=== PATIENT | female | born 1935 | race Caucasian/White ===

== ENCOUNTER 2019-05-06 11:07 | Outpatient (CLI) | payer MEDICARE, OTHER | END 2019-05-06 11:08 | disposition home or self-care (01) | LOC: DI 11:07 | PROVIDERS: ATTEND Family Medicine | DX: I35.0 Nonrheumatic aortic (valve) stenosis (principal); R01.1 Cardiac murmur, unspecified; I50.9 Heart failure, unspecified; R06.00 Dyspnea, unspecified; J90 Pleural effusion, not elsewhere classified | CPT/HCPCS: 93306 ==

== ENCOUNTER 2019-09-16 12:31 | Outpatient (CLI) | payer MEDICARE, OTHER | END 2019-09-16 12:32 | disposition home or self-care (01) | LOC: DI 12:31 | PROVIDERS: ATTEND Specialist | DX: I50.22 Chronic systolic (congestive) heart failure (principal); Z95.2 Presence of prosthetic heart valve | CPT/HCPCS: 93306 ==

== ENCOUNTER 2020-05-28 15:39 | Outpatient (CLI) | payer MEDICARE, OTHER | END 2020-05-28 15:40 | disposition home or self-care (01) | LOC: COV 15:39 | PROVIDERS: ATTEND Ophthalmology | DX: Z01.812 Encounter for preprocedural laboratory examination (principal); H25.811 Combined forms of age-related cataract, right eye; Z20.828 Contact with and (suspected) exposure to other viral communicable diseases ==

== ENCOUNTER 2020-06-03 07:46 | Day surgery (SDC) | payer MEDICARE, OTHER ==
[~2020-06-03 07:46] MED LIST: KETOROLAC 0.45% OPHTH DROPS ONE; PHENYLEPHRINE 2.5% OPHTH 2 ML DROPS ONE; PROPARACAINE 0.5% OPHTH DROPS 15 ML ONE
[2020-06-03] MEDS ORDERED: LACTATED RINGERS 500 ML IV ONE ×2 (08:07→09:25)
--- NOTE | 2020-06-03 08:31 | ANESTHESIA ---
Pre-Anesthesia VS, & Labs - Diagnosis right eye senile combined cataract - Procedure right eye cataract extraction with IOL implant Vital Signs: Temp Pulse Resp BP Pulse Ox 36.2 C L 61 16 150/81 H 100 06/03/20 08:08 06/03/20 08:08 06/03/20 08:08 06/03/20 08:08 06/03/20 08:08 Height: 5 ft 4 in Weight (kg): 53 kg Body Mass Index: 20.0 BMI Classification: Healthy weight - NPO >8 hours - Is Patient ?: No Home Medications and Allergies Home Medications: Ambulatory Orders Warfarin [Coumadin] 4 mg PO DAILY 06/02/20 Warfarin [Coumadin] 4 mg PO DAILY 06/02/20 Allergies/Adverse Reactions: Allergies Allergy/AdvReac Type Severity Reaction Status Date / Time Gadolinium-Containing AdvReac Intermediate Rash Verified 06/02/20 15:10 Contrast Medi VONNIE Inhibitors AdvReac Respiratory Verified 06/02/20 15:10 Anes History & Medical History - Anesthetic History Anesthesia Complications: reports: No previous complications - Medical History Cardiovascular: reports: Congestive heart failure (EF 40-45%), Murmur, Valve disorder (AVR replacement (TAVR)) Pulmonary: reports: Emphysema, Shortness of breath, Sleep apnea (does not use CPAP, stated it was not indicated by sleep physician.) Gastrointestinal: reports: None Urinary: reports: Incontinence, Frequency Neuro: reports: TIA Musculoskeletal: reports: Osteoarthritis, Fatigue Endocrine/Autoimmune: reports: None Blood Disorders: reports: None Skin: reports: None Smoking Status: Former smoker (Quit 23 years ago. 40 pack year history) Psychosocial: reports: No issues indicated History of Cancer?: No - Surgical History General: Colonoscopy Eyes Ears Nose Throat (EENT): Tonsil/Adenoidectomy Cardiothoracic: Valve replacement Exam General: Alert, Oriented x3, Cooperative, No acute distress Dental: Dentures full Upper, Dentures full Lower Mouth Openin Fingerbreadth Neck Mobility: Normal Mallampati classification: II Thyromental Distance: 4-6 cm Mental/Cognitive Status: Alert/Oriented X3, Normal for patient Plan Anesthesia Type: MAC Consent for Procedure(s) Verified and Reviewed: Yes Code Status: Attempt Resuscitation ASA classification: 3-Severe systemic disease Is this case an emergency?: No
[2020-06-03] MEDS ORDERED: MIDAZOLAM 2 MG/2 ML VIAL IVP ONE (09:00)
[2020-06-03] MEDS ORDERED: EPINEPHrine 1 MG/ML AMP IR ONE (09:13)
[2020-06-03] MEDS ORDERED: TIMOLOL 0.5% OPHTH DROPS OPTH ONE (09:13)
[2020-06-03] MEDS ORDERED: CHONDR SULF/HYALURONATE SYRINGE IO ONE (09:13)
[2020-06-03] MEDS ORDERED: BSS/LIDOCAINE/EPINEPHRINE 1 ML SYRINGE IO ONE (09:13)
[2020-06-03] MEDS ORDERED: BRIMONIDINE 0.2% OPHTH DROPS 5 ML OPTH ONE (09:13)
[2020-06-03] MEDS ORDERED: TRIAMCIN/MOXIFLOX OPHTHALMIC 0.6 ML VIAL IO ONE ×2 (09:13→13:57)
[2020-06-03] MEDS ORDERED: PROPARACAINE 0.5% OPHTH DROPS 15 ML EACHEYE ONE (09:14)
[2020-06-03] MEDS ORDERED: VANCOMYCIN OPHTHALMI 8MG/0.8ML 8 MG/0.8 ML SYRINGE IO ONE ×2 (09:14→13:57)
[2020-06-03 09:35] VITALS: BP 154/55
--- NOTE | 2020-06-03 11:37 | ANESTHESIA POST OP EVALUATION ---
Anesthesia Post Eval - Post Anesthesia Eval Vitals: Last Vital Signs Temp 36.1 C L 06/03/20 09:20 Pulse 61 06/03/20 09:34 Resp 17 06/03/20 09:34 BP 154/55 H 06/03/20 09:34 Pulse Ox 92 06/03/20 09:34 CV Function Including HR & BP: positive: Stable Pain Control: positive: Satisfactory Nausea & Vomiting: positive: Negative Mental Status: positive: Baseline Respiratory Status: Airway Patent Hydration Status: Satisfactory Anesthesia Complications: positive: None
--- NOTE | 2020-06-03 11:52 | OPERATIVE REPORT ---
DATE OF SERVICE: 06/03/2020 Physician: Karan Sterling MD PREOPERATIVE DIAGNOSIS: Visually significant cataract, right eye. This was her first cataract surge ry. POSTOPERATIVE DIAGNOSIS: Visually significant cataract, right eye. This was her first cataract surg roya. PROCEDURE: Phacoemulsification with posterior chamber intraocular lens implant, right eye. SURGEON: Karan Sterling MD ANESTHESIA: Monitored anesthesia care. COMPLICATIONS: None. OPERATIVE INDICATIONS: This is an 84-year-old woman with progressive vision loss in the right eye du e to 3-4+ nuclear sclerotic, 1+ cortical and vacuolar cataract. Best corrected visual acuity was 20/ 30, with glare to hand motion vision in the right eye. Indications for surgery are overall decrease in vision, difficulty seeing words on a computer screen, difficulty seeing words, closed caption or g gerhard scores on TV, difficulty seeing street signs, difficulty driving in low light or at night, diffic ulty driving at night because of headlights from other vehicles, and difficulty with glare or bright lights in any situation. She was consented at length concerning risks and benefits of cataract surge ry, after which she expressed a desire to proceed with surgery. OPERATIVE PROCEDURE: The patient was taken to OR #3 and placed under monitored anesthesia care. A s urgical timeout was conducted confirming correct patient, correct procedure, and correct surgical sit e. She was given topical anesthesia, and prepped and draped in the usual sterile fashion. The eye w as entered at the 12 and 9 o'clock positions. Intracameral Shugarcaine was injected into the anterio r chamber, followed by Viscoat. A continuous-tear curvilinear capsulorrhexis was performed. The nuc leus was hydrodissected and phacoemulsified. The cortex was evacuated using automated infusion and a spiration. Provisc was injected in the capsular bag, and a 18.5 diopter intraocular lens was inserte d into the bag. Infusion and aspiration was used to evacuate the viscoelastic material. The eye was inflated to physiologic pressure using balanced salt solution and found to be watertight. Approxima tely 0.25 mL of a mixture of triamcinolone and moxifloxacin was injected transsclerally into the vitr eous in the inferotemporal quadrant. An additional 0.55 mL of a mixture of triamcinolone, moxifloxac in, and vancomycin was injected subconjunctivally in the superior quadrant for infection and inflamma tion prophylaxis. Wound integrity was checked with Weck-Faye sponges. Patient was taken from the Ope rating Room in good condition and given postoperative instructions. TD: 06/03/2020 09:32
[2020-06-03] MEDS ORDERED: BSS/LIDOCAINE/EPINEPHRINE 1 ML SYRINGE ONE (13:57)
[2020-06-03] MEDS ORDERED: EPINEPHrine 1 MG/ML AMP ONE (13:57)
[2020-06-03] MEDS ORDERED: TIMOLOL 0.5% OPHTH DROPS ONE (13:57)
[2020-06-03] MEDS ORDERED: BRIMONIDINE 0.2% OPHTH DROPS 5 ML ONE (13:57)
== END 2020-06-03 07:47 | disposition home or self-care (01) ==
LOC: SDS 07:46
PROVIDERS: ATTEND Ophthalmology
DX: H25.811 Combined forms of age-related cataract, right eye (principal); G47.30 Sleep apnea, unspecified; I69.954 Hemiplegia and hemiparesis following unspecified cerebrovascular disease affecting left non-dominant side; Z79.01 Long term (current) use of anticoagulants; Z87.891 Personal history of nicotine dependence
CPT/HCPCS: 66984; A9270; J3490; J7120; V2632

== ENCOUNTER 2020-07-09 13:51 | Outpatient (CLI) | payer MEDICARE, OTHER | END 2020-07-09 13:52 | disposition home or self-care (01) | LOC: COV 13:51 | PROVIDERS: ATTEND Ophthalmology | DX: Z01.812 Encounter for preprocedural laboratory examination (principal); H25.812 Combined forms of age-related cataract, left eye; Z20.828 Contact with and (suspected) exposure to other viral communicable diseases ==

== ENCOUNTER 2020-07-15 07:01 | Day surgery (SDC) | payer MEDICARE, OTHER ==
[2020-07-15] MEDS ORDERED: LACTATED RINGERS 500 ML IV ONE ×2 (07:25→08:11)
--- NOTE | 2020-07-15 07:36 | ANESTHESIA ---
Pre-Anesthesia VS, & Labs - Diagnosis L senile combined cataract - Procedure L extraction cataract w IOL Vital Signs: Temp Pulse Resp BP Pulse Ox 36.1 C L 66 16 141/63 H 100 07/15/20 07:10 07/15/20 07:10 07/15/20 07:10 07/15/20 07:10 07/15/20 07:10 Height: 5 ft 3 in Weight (kg): 55.4 kg Body Mass Index: 21.6 BMI Classification: Healthy weight - NPO >8 hours - Is Patient ?: No - Lab Results Lab results reviewed: Yes Home Medications and Allergies Warfarin [Coumadin] 4 mg PO DAILY 06/02/20 Allergies/Adverse Reactions: Allergies Allergy/AdvReac Type Severity Reaction Status Date / Time Gadolinium-Containing AdvReac Intermediate Rash Verified 06/02/20 15:10 Contrast Medi VONNIE Inhibitors AdvReac Respiratory Verified 06/02/20 15:10 Anes History & Medical History - Anesthetic History Anesthesia Complications: reports: No previous complications Family history of Anesthesia Complications: Denies Family history of Malignant Hyperthermia: Denies - Medical History Cardiovascular: reports: Congestive heart failure, Hypertension, Murmur, Valve disorder Pulmonary: reports: Shortness of breath, Sleep apnea Gastrointestinal: reports: None Urinary: reports: None, Nocturia Neuro: reports: TIA Musculoskeletal: reports: Osteoarthritis Endocrine/Autoimmune: reports: None Blood Disorders: reports: None Skin: reports: None Smoking Status: Former smoker (Quit 23 years ago. 40 pack year history) - Surgical History General: Colonoscopy Eyes Ears Nose Throat (EENT): Cataracts, Tonsil/Adenoidectomy Exam General: Alert, Oriented x3, Cooperative Dental: Dentures full Upper, Dentures full Lower Mouth Openin Fingerbreadth Neck Mobility: Normal Mallampati classification: II Thyromental Distance: 4-6 cm Respiratory: Lungs clear, Normal breath sounds, No respiratory distress Cardiovascular: Regular rate Neurological: Normal speech Mental/Cognitive Status: Alert/Oriented X3, Normal for patient Cognitive Status: Within normal limits Plan Anesthesia Type: MAC Consent for Procedure(s) Verified and Reviewed: Yes Code Status: Attempt Resuscitation ASA classification: 3-Severe systemic disease Is this case an emergency?: No
[2020-07-15] MEDS ORDERED: MIDAZOLAM 2 MG/2 ML VIAL ONE (07:44)
[2020-07-15] MEDS ORDERED: fentaNYL 100 MCG/2 ML VIAL ONE (07:46)
[2020-07-15] MEDS ORDERED: PROPARACAINE 0.5% OPHTH DROPS 15 ML EACHEYE ONE (07:57)
[2020-07-15] MEDS ORDERED: EPINEPHrine 1 MG/ML AMP IR ONE (08:01)
[2020-07-15] MEDS ORDERED: BRIMONIDINE 0.2% OPHTH DROPS 5 ML OPTH ONE (08:01)
[2020-07-15] MEDS ORDERED: CHONDR SULF/HYALURONATE SYRINGE IO ONE (08:01)
[2020-07-15] MEDS ORDERED: TRIAMCIN/MOXIFLOX OPHTHALMIC 0.6 ML VIAL IO ONE (08:02)
[2020-07-15] MEDS ORDERED: TIMOLOL 0.5% OPHTH DROPS OPTH ONE (08:02)
[2020-07-15] MEDS ORDERED: BSS/LIDOCAINE/EPINEPHRINE 1 ML SYRINGE IO ONE (08:02)
[2020-07-15] MEDS ORDERED: VANCOMYCIN OPHTHALMI 8MG/0.8ML 8 MG/0.8 ML SYRINGE IO ONE (08:03)
[2020-07-15] MEDS ORDERED: KETOROLAC 15 MG/ML VIAL IVP PRN (08:18)
[2020-07-15 08:26] VITALS: BP 114/83
[2020-07-15] MEDS ORDERED: KETOROLAC 15 MG/ML VIAL ONE (08:30)
--- NOTE | 2020-07-15 08:49 | ANESTHESIA POST OP EVALUATION ---
Anesthesia Post Eval - Post Anesthesia Eval Vitals: Last Vital Signs Temp 36.6 C 07/15/20 08:10 Pulse 74 07/15/20 08:10 Resp 16 07/15/20 08:10 BP 114/83 H 07/15/20 08:10 Pulse Ox 99 07/15/20 08:10 CV Function Including HR & BP: positive: Stable Pain Control: positive: Satisfactory Nausea & Vomiting: positive: Negative Mental Status: positive: Baseline Respiratory Status: Airway Patent Hydration Status: Satisfactory Anesthesia Complications: positive: None
--- NOTE | 2020-07-15 09:13 | OPERATIVE REPORT ---
DATE OF SERVICE: 07/15/2020 Physician: Karan Sterling MD PREOPERATIVE DIAGNOSIS: Visually significant cataract, left eye. Cataract surgery was performed on the right eye on 06/03/2020. POSTOPERATIVE DIAGNOSIS: Visually significant cataract, left eye. Cataract surgery was performed on the right eye on 06/03/2020. PROCEDURE: Phacoemulsification with posterior chamber intraocular lens implant, left eye. SURGEON: Karan Sterling MD ANESTHESIA: Monitored anesthesia care. COMPLICATIONS: None. OPERATIVE INDICATIONS: This is an 84-year-old woman with progressive vision loss in the left eye due to 3-4+ nuclear sclerotic, 2+ cortical, and trace posterior subcapsular cataract. Best corrected vi sual acuity was 20/40, with glare to hand motion vision in the left eye. Indications for surgery are overall decrease in vision, difficulty seeing words on a computer screen, difficulty reading, diffic ulty seeing words, closed caption or game scores on TV, difficulty seeing street signs, difficulty dr iving in low light or at night, difficulty driving at night because of headlights from other vehicles , and difficulty with glare or bright lights in any situation. She was consented at length concernin g risks and benefits of cataract surgery, after which she expressed a desire to proceed with surgery. OPERATIVE PROCEDURE: The patient was taken to OR #3 and placed under monitored anesthesia care and s urgical timeout was conducted confirming correct patient, correct procedure, and correct surgical sit e. She was given topical anesthesia, and prepped and draped in the usual sterile fashion. The eye w as entered at the 6 and 3 o'clock positions. Intracameral Shugarcaine was injected into the anterior chamber, followed by Viscoat. A continuous-tear curvilinear capsulorrhexis was performed. Nucleus was hydrodissected and phacoemulsified. The cortex was evacuated using automated infusion and aspira tion. Provisc was injected in the capsular bag, and a 16.5 diopter intraocular lens inserted in the bag. Infusion and aspiration was used to evacuate the viscoelastic materials. The eye was inflated to physiologic pressure using balanced salt solution and found to be watertight. Approximately 0.25 mL of a mixture of triamcinolone and moxifloxacin was injected transsclerally into the vitreous in th e inferotemporal quadrant. An additional 0.55 mL of a mixture of triamcinolone, moxifloxacin, and va ncomycin was injected subconjunctivally in the superior quadrant for infection and inflammation proph ylaxis. Wound integrity was checked with Weck-Afye sponges. Patient was taken from the operating beckie m in good condition and given postoperative instructions. TD: 07/15/2020 08:25
== END 2020-07-15 07:02 | disposition home or self-care (01) ==
LOC: SDS 07:01
PROVIDERS: ATTEND Ophthalmology
DX: H25.812 Combined forms of age-related cataract, left eye (principal); I11.0 Hypertensive heart disease with heart failure; I50.9 Heart failure, unspecified; G47.30 Sleep apnea, unspecified; R35.1 Nocturia; Z86.73 Personal history of transient ischemic attack (TIA), and cerebral infarction without residual deficits; Z79.01 Long term (current) use of anticoagulants; Z87.891 Personal history of nicotine dependence; Z95.2 Presence of prosthetic heart valve
CPT/HCPCS: 66984; A9270; J3490; J7120; V2632

== ENCOUNTER 2021-09-14 00:52 | Outpatient (CLI) | payer MEDICARE, OTHER | END 2021-09-14 00:53 | disposition critical access hospital (66) | LOC: EMS 00:52 | DX: R06.00 Dyspnea, unspecified (principal); R53.1 Weakness; R50.9 Fever, unspecified | CPT/HCPCS: A0425; A0429 ==

== ENCOUNTER 2021-09-14 01:16 | Inpatient (IN) | payer MEDICARE, OTHER ==
[2021-09-14] MEDS ORDERED: ACETAMINOPHEN 325 MG TABLET PO STA (01:35)
[2021-09-14] MEDS ORDERED: AZITHROMYCIN INJ 500 MG in SODIUM CHLORIDE 0.9% 250 ML IV STA (01:50)
[2021-09-14] MEDS ORDERED: SODIUM CHLORIDE 0.9% 1,000 ML IV STA (01:50)
[2021-09-14] MEDS ORDERED: cefTRIAXone 2 GM in SODIUM CHLORIDE 0.9% MINIBAG 100 ML IV STA (01:50)
[2021-09-14 01:51] LABS: BASOPHILS % (AUTO) 0.4 %; EOSINOPHILS % (AUTO) 0.3 %; HCT - HEMATOCRIT 40.1 % (37.0-47.0); HGB - HEMOGLOBIN 13.1 g/dL (12.0-16.0); LYMPHOCYTES % (AUTO) 3.1 %; MEAN CORPUSCULAR HEMOGLOBIN 30.6 pg (27.0-31.0); MEAN CORPUSCULAR HGB CONC 32.7 g/dL (32.0-36.0); MEAN CORPUSCULAR VOLUME 93.7 fL (81.0-99.0); MEAN PLATELET VOLUME 11.6 fL (7.9-10.8); MONOCYTES % (AUTO) 5.6 %; NEUTROPHILS % (AUTO) 90.2 %; PLT - PLATELET COUNT 165 10^3/uL (130-450); RED BLOOD COUNT 4.28 10^6/uL (4.20-5.40); RED CELL DISTRIBUTION WIDTH 12.9 % (12.0-15.0); WHITE BLOOD COUNT 13.6 x10^3/uL (4.8-10.8)
[2021-09-14 01:54] LABS: ABNORMAL LYMPHS % (MANUAL) 0 %; BAND NEUTROPHILS % (MANUAL) 0 %
--- NOTE | 2021-09-14 02:00 | ED Physician Documentation ---
History of Present Illness - Stated complaint Stated Complaint: SOA/FEVER - Chief complaint Chief Complaint: Resp - History obtained from History obtained from: Patient, EMS - Additonal information Additional information: The patient is brought to the emergency department by EMS for chief complaint of cough and weakness. The patient states that she came down with a cough about 2 weeks ago and says "my brought it home to me." The patient's had been sick with what seemed to be upper respiratory symptoms, and the patient then got sick from him. She states that she feels as though her shortness of breath has been getting steadily worse. The patient does not have any respiratory issues that she knows of. She was a smoker for 40 years and quit when she was 61. She does not know if she is ever received a formal diagnosis of COPD. She does not use any oxygen at home. She has a history of atrial fibrillation and aortic valve stenosis, for which she had an aortic valve repla cement back in [id number]. Patient is not aware of running fevers. She states that she got a little weak today and fell. She is on Coumadin for her atrial fibrillation, but states that she Did not hit her head when she fell. No other injuries. Patient denies lower extremity edema. She states she has never had any diagnosis of congestive heart failure, other than when she was about to get her aortic valve replaced. No other complaints at this time. She states she is feeling a little better on oxygen. Review of Systems Ten Systems: 10 systems reviewed and negative Constitutional: reports: Fatigue Eyes: reports: Reviewed and negative Ears: reports: Reviewed and negative Nose: reports: Reviewed and negative Throat: reports: Reviewed and negative Cardiac: reports: Palpitations Respiratory: reports: Dyspnea, Cough GI: reports: Reviewed and negative : reports: Reviewed and negative Skin: reports: Reviewed and negative Musculoskeletal: reports: Reviewed and negative Neurologic: reports: Reviewed and negative Psychiatric: reports: Reviewed and negative Endocrine: reports: Reviewed and negative Immunocompromised: reports: Reviewed and negative PD PAST MEDICAL HISTORY - Past Medical History Past Medical History: Yes Cardiovascular: Congestive heart failure, Hypertension, Coronary artery disease, Atrial fibrillation, Valve disorder Respiratory: COPD Neuro: TIA - Past Surgical History Cardiovascular: Valve replacement - Present Medications Home Medications: Ambulatory Orders Medication Instructions Recorded Confirmed Warfarin [Coumadin] 4 mg PO DAILY 06/02/20 06/02/20 - Allergies Allergies/Adverse Reactions: Allergies Allergy/AdvReac Type Severity Reaction Status Date / Time Gadolinium-Containing AdvReac Intermediate Rash Verified 09/14/21 01:25 Contrast Medi VONNIE Inhibitors AdvReac Respiratory Verified 09/14/21 01:25 - Social History Does the pt smoke?: No Smoking Status: Former smoker Does the pt drink ETOH?: No Does the pt have substance abuse?: No - Immunizations Immunizations are current?: Yes PD ED PE NORMAL - Vitals Vital signs reviewed: Yes - General General: Alert and oriented X 3, No acute distress, Well developed/nourished - HEENT HEENT: Atraumatic, PERRL, EOMI, Moist mucous membranes - Neck Neck: Supple, no meningeal sign - Cardiac Cardiac: RRR, No murmur, Strong equal pulses - Respiratory Respiratory: Clear bilaterally, Other (Very mild respiratory distress with slightly labored respirations and mild tachypnea. Rales starting in upper lobe and worsening in the lower lung downing. Right side worse than left.) - Abdomen Abdomen: Soft, Non tender, Non distended - Derm Derm: Normal color, Warm and dry, No rash - Extremities Extremities: No deformity, No edema, No calf tenderness / cord - Neuro Neuro: Alert and oriented X 3 - Psych Psych: Normal mood, Normal affect Results - Vitals Vitals: Vital Signs - 24 hr 09/14/21 09/14/21 09/14/21 01:25 01:30 02:00 Temperature 37.7 C 37.7 C Heart Rate 118 H 118 H 92 Respiratory 28 H 28 H 23 Rate Blood Pressure 128/96 H 128/96 H 118/62 O2 Saturation 94 94 97 Oxygen O2 Source Nasal cannula Oxygen Flow Rate 4 - Labs Labs: Laboratory Tests 09/14/21 09/14/21 09/14/21 01:30 01:30 01:30 WBC 13.6 H RBC 4.28 Hgb 13.1 Hct 40.1 MCV 93.7 MCH 30.6 MCHC 32.7 RDW 12.9 Plt Count 165 MPV 11.6 H Neut # (Auto) Not Reportable Lymph # (Auto) Not Reportable Hawkins # (Auto) Not Reportable Eos # (Auto) Not Reportable Baso # (Auto) Not Reportable Absolute Nucleated RBC Not Reportable Total Counted 100 Band Neuts % (Manual) 0 Abnorm Lymph % (Manual) 0 Nucleated RBC % Not Reportable Neutrophils # (Manual) 12.1 H Lymphocytes # (Manual) 0.5 L Monocytes # (Manual) 1.0 Eosinophils # (Manual) 0.0 Basophils # (Manual) 0.0 Differential Comment MANUAL DIFFERENTIAL WBC Morphology NORMAL APPEARANCE Platelet Estimate NORMAL (130-450,000) Platelet Morphology NORMAL APPEARANCE RBC Morph Micro Appear NORMAL APPEARANCE PT INR Sodium 137 Potassium 3.6 Chloride 103 Carbon Dioxide 22 Anion Gap 12.0 BUN 22 H Creatinine 0.9 Estimated GFR (MDRD) 60 L Glucose 158 H Lactic Acid 1.4 Calcium 8.5 Total Bilirubin 0.8 AST 18 ALT 16 Alkaline Phosphatase 69 B-Natriuretic Peptide Total Protein 6.3 L Albumin 3.2 Globulin 3.1 Albumin/Globulin Ratio 1.0 09/14/21 09/14/21 01:30 01:30 WBC RBC Hgb Hct MCV MCH MCHC RDW Plt Count MPV Neut # (Auto) Lymph # (Auto) Hawkins # (Auto) Eos # (Auto) Baso # (Auto) Absolute Nucleated RBC Total Counted Band Neuts % (Manual) Abnorm Lymph % (Manual) Nucleated RBC % Neutrophils # (Manual) Lymphocytes # (Manual) Monocytes # (Manual) Eosinophils # (Manual) Basophils # (Manual) Differential Comment WBC Morphology Platelet Estimate Platelet Morphology RBC Morph Micro Appear PT 36.1 H INR 3.3 H Sodium Potassium Chloride Carbon Dioxide Anion Gap BUN Creatinine Estimated GFR (MDRD) Glucose Lactic Acid Calcium Total Bilirubin AST ALT Alkaline Phosphatase B-Natriuretic Peptide 330 H Total Protein Albumin Globulin Albumin/Globulin Ratio PD MEDICAL DECISION MAKING - ED course Complexity details: reviewed old records, reviewed results, re-evaluated patient, considered differential, d/w patient ED course: The patient was worked up with labs, and chest x-ray, and EKG. EKG showed A. fib with tachycardia in the 1 teens. The patient's white blood cell count was elevated at 13.9. Hemoglobin was normal. Chest x-ray noted bilateral infiltrates. Patient was started on Rocephin and Zithromax for this. A respiratory PCR is pending. The patient's BNP was found to be 330, but chest x- ray showed no cardiomegaly or appearance of CHF, and patient had no lower extremity edema. Her BUN was mildly elevated compared to creatinine, and I felt that she could probably benefit from some fluids, so an IV fluid bolus was started. I discussed the case with Dr. Gil, who agreed to admit the patient to her service.The patient has been informed and is agreeable. I have discussed her CODE STATUS wishes with her, and she states that she does not wish to have CPR, shock, or intubation, but would prefer to be DNR status with limited i nterventions. Departure - Departure Disposition: 66 [facility] DC/Xfer Clinical Impression: Hypoxia Pneumonia Qualifiers: Pneumonia type: due to unspecified organism Laterality: bilateral Lung location: lower lobe of lung Qualified Code(s): J18.9 - Pneumonia, unspecified organism Condition: Serious
[2021-09-14] MEDS ORDERED: cefTRIAXone 2 GM VIAL ONE (02:03)
[2021-09-14 02:04] LABS: ALBUMIN 3.2 g/dL (3.2-5.5); BILIRUBIN,TOTAL 0.8 mg/dL (0.2-1.0); CALCIUM 8.5 mg/dL (8.5-10.3); CREATININE 0.9 mg/dL (0.4-1.0); POTASSIUM 3.6 mmol/L (3.5-5.0); TOTAL PROTEIN 6.3 g/dL (6.7-8.2)
[2021-09-14 02:05] LABS: INR 3.3 (0.8-1.2); PT - PROTHROMBIN TIME 36.1 secs (9.9-12.6)
--- NOTE | 2021-09-14 02:08 | XRAY Report ---
PROCEDURE: Chest 1 View X-Ray INDICATIONS: chest pain TECHNIQUE: One view of the chest was acquired. COMPARISON: None. FINDINGS: Surgical changes and devices: None. Lungs and pleura: Infiltrates in right lower lobe and left midlung zone, consistent with pneumonia. N o pleural effusions or pneumothorax. Mediastinum: Mediastinal contours appear normal. Heart size is normal. There is a heart valve pros thesis. Tortuous aorta. Bones and chest wall: No suspicious bony lesions. Overlying soft tissues appear unremarkable. IMPRESSION: 1. Bilateral pneumonia. Reviewed by: Kody Li MD on 09/14/2021 2:07 AM [facility] Approved by: Kody Li MD on 09/14/2021 2:07 AM PST Station ID: [id number]
[2021-09-14 02:20] LABS: DIFFERENTIAL COMMENT MANUAL DIFFERENTIAL; LYMPHOCYTES # (MANUAL) 0.5 10^3/uL (1.5-3.5); LYMPHOCYTES % (MANUAL) 4 %; NEUTROPHILS # (MANUAL) 12.1 10^3/uL (1.5-6.6); PLATELET ESTIMATE, MANUAL NORMAL (130-450,000) (NORMAL); PLATELET MORPHOLOGY NORMAL APPEARANCE (NORMAL); RBC MORPHOLOGY (MULTIPLE) NORMAL APPEARANCE (NORMAL); WBC MORPHOLOGY (MULTIPLE) NORMAL APPEARANCE (NORMAL)
[2021-09-14 02:45] LABS: B. PARAPERTUSSIS- RESP PCR PAN NOT DETECTED; B. PERTUSSIS- RESP PCR PANEL NOT DETECTED; C. PNEUMONIAE- RESP PCR PANEL NOT DETECTED; CORONAVIRUS 229E-RESP PCR NOT DETECTED; CORONAVIRUS HKU1-RESP PCR NOT DETECTED; CORONAVIRUS NL63-RESP PCR NOT DETECTED; CORONAVIRUS OC43-RESP PCR NOT DETECTED; HUMAN METAPNEUMOVIRUS DETECTED; INFLUENZA A- RESP PCR PANEL NOT DETECTED; INFLUENZA B - RESP PCR PANEL NOT DETECTED; M. PNEUMONIAE- RESP PCR PANEL NOT DETECTED; PARAINFLUENZA VIRUS 1 NOT DETECTED; PARAINFLUENZA VIRUS 2 NOT DETECTED; PARAINFLUENZA VIRUS 3 NOT DETECTED; PARAINFLUENZA VIRUS 4 NOT DETECTED; RHINOVIRUS/ENTEROVIRUS NOT DETECTED; RSV- RESP PCR PANEL NOT DETECTED; SARS-CoV-2 -RESP PCR PANEL NOT DETECTED
[2021-09-14] MEDS ORDERED: SODIUM CHLORIDE FLUSH 0.9% 10 ML SYRINGE IVP PRN (02:48)
[2021-09-14] MEDS ORDERED: ACETAMINOPHEN 325 MG TABLET PO PRN (02:48)
[2021-09-14] MEDS ORDERED: oxyCODONE 5 MG TABLET PO PRN (02:48)
[2021-09-14] MEDS ORDERED: MORPHINE 2 MG/ML CARPUJECT IVP PRN (02:48)
[2021-09-14] MEDS ORDERED: ONDANSETRON ODT 4 MG TABLET TL PRN (02:48)
[2021-09-14] MEDS ORDERED: ONDANSETRON 4 MG/2 ML VIAL IVP PRN (02:48)
--- NOTE | 2021-09-14 02:58 | HISTORY & PHYSICAL EXAMINATION ---
Chief Complaint - Chief Complaint Chief Complaint: cough and sob History of Present Illness - Admitted From Admitted From:: home via EMS - History Obtained From Records Reviewed: [facility] History obtained from: patient and Dr. Hidalgo Exam Limitations: none - History of Present Illness HPI Comment/Other: She began having a cough 2 weeks ago that was productive of yellow sputum. Her was will with a cough and he recovered after a few days but she did not. The cough is getting worse, and with it came more more shortness of breath. She has no appetite and forces herself to eat. No change in bowel habits. No chest pain other than her ribs hurting from the constant cough. She began having blood-tinged sputum today. The shortness of breath became severe enough that the family called an ambulance. In the ambulance her temperature was 101. Her O2 sats were in the 80s on room air. She required 6 L of oxygen to bring her O2 sats in the mid 90s. Past medical history is that of TAVR for aortic stenosis, congestive heart failure due to her aortic stenosis prior to valve replacement for which she was hospitalized at [facility]. In the emergency room temperature is 37.7. Heart rate was 118. Blood pressure 128/96. 94% on 3 L. She is not in any distress. She appears well-nourished. Mucous membranes are moist. She has slightly labored respirations and mild tachypnea. She has rales starting in the upper lobe and worsening in the lower lung downing. Right is worse than left. Chest x-ray shows bilateral pneumonia. BNP was 330. White cell count 13.6. No anemia. 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 She of "old age". Dad at approximately 91. Again no major medical illnesses. 1 brother and 1 sister. Brother has a pacemaker but there is no history of congestive heart failure, [place], cancer, stroke. 3 children that she says have no major medical illnesses. Living arrangement: At home Living Situation: With spouse/s.o. Social History Notes: She is to her second . They live on [address] because he is retired [employer]. She smoked from the age of 21 to the age of 41 and smoked a pack and a half a day. She does not like to drink so has no history of alcohol abuse. She has no history of recreational substance abuse. Her had 4 children with his first marriage, she had 3. She was a [id number] mom that raised 7 children. - Substance History Use: Uses substance without health or social issues: NONE Abuse: Recurrent use of substance despite neg consequences: NONE Dependence: Experiences withdrawal or developed tolerances: NONE - POLST Patient has POLST: No POLST Status: Full Code Meds/Allgy - Home Medications Home Medications: Ambulatory Orders Medication Instructions Recorded Confirmed Warfarin [Coumadin] 4 mg PO DAILY 06/02/20 06/02/20 - Allergies Allergies/Adverse Reactions: Allergies Allergy/AdvReac Type Severity Reaction Status Date / Time Gadolinium-Containing AdvReac Intermediate Rash Verified 09/14/21 01:25 Contrast Medi VONNIE Inhibitors AdvReac Respiratory Verified 09/14/21 01:25 Review of Systems - Constitutional Constitutional: reports: Fatigue, Malaise, Weakness, Poor appetite - Eyes Eyes: denies: Pain, Amaurosis, Vision loss, Dipolpia - Ears, Nose & Throat Ears, Nose & Throat: reports: Hearing loss, Nasal congestion, Postnasal drainage (copious and chronic). denies: Sore throat, Hoarseness - Cardiovascular Cariovascular: reports: Exertional dyspnea, Decr. exercise tolerance, Other (Overall decreased endurance and is slowing down this only getting worse starting 10 years ago from her strokes.). denies: Irregular heart rate, Palpitations, Chest pain, Edema - Respiratory Respiratory: reports: Cough, Sputum production, Wheezing, SOB at rest, SOB with exertion - Gastrointestinal Gastrointestinal: denies: Abdominal pain, Abdominal distention, Constipation, Diarrhea, Change in bowel habits - Genitourinary Genitourinary: reports: Incontinence. denies: Dysuria, Frequency, Urgency, Fla nk pain, Nocturia - Musculoskeletal Musculoskeletal: denies: Joint pain (but hands weak from years of crocheting) - Integumentary Integumentary: denies: Rash, Pruritis, Lesions - Neurological Neurological: reports: General weakness, Pre-existing deficit (left body is weak from 2 strokes 10 yrs ago). denies: Focal weakness, Headache, Dizziness, Memory problems Prior Level of Functionality: She is completely independent with activities of daily living and does not require any durable medical equipment.However she has slowed down a lot in the last 10 years. 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 She just cannot keep up, and tires out very easily. Exam - Vital Signs Reviewed Vital Signs: Yes Vital Signs: Vital Signs x48h Temp Pulse Resp BP Pulse Ox 09/14/21 02:00 92 23 118/62 97 09/14/21 01:30 37.7 C 118 H 28 H 128/96 H 94 09/14/21 01:25 37.7 C 118 H 28 H 128/96 H 94 - Physical Exam General Appearance: positive: Alert, Mild distress, Other (Cachectic elderly female, weak cough mechanism that is unable to bring up the gurgling phlegm that I hear while she tries to speak.) Eyes Bilateral: positive: PERRL, EOMI ENT: positive: No signs of dehydration Neck: positive: No JVD. negative: Stiff neck, Carotid bruit Respiratory: positive: Wheezes, Rales, Rhonchi Cardiovascular: positive: Regular rate & rhythm, Systolic murmur. negative: Gallop/S4, Friction rub Peripheral Pulses: positive: 1+ Abdomen: positive: Non-tender, No organomegaly, Nml bowel sounds, No distention Skin: positive: Warm, Dry, Pallor, Other (Lateral third of both eyebrows gone.) Extremities: positive: Non-tender, Full ROM Neurologic/Psychiatric: positive: Oriented x3, CN's nml (2-12), Motor nml Conclusion/Plan - Problem List (1) Community acquired pneumonia Conclusion/Plan: This is a bilateral pneumonia. Does not appear to be the atypical pneumonia of viral pneumonia. Covid test not ordered. She is hypoxic, slightly tachypneic with positive lung findings. Plan: Inpatient status Check Covid status since was not checked in the emergency room Community-acquired pneumonia antibiotics Review cultures when available and adjust antibiotics as necessary Qualifiers: Laterality: left Lung location: unspecified part of lung Qualified Code(s): J18.9 - Pneumonia, unspecified organism (2) History of stroke with residual deficit Conclusion/Plan: She states she had a dramatic loss of overall functionality 10 years ago when she had her first stroke. Since that time she has been steadily going downhill with less and less endurance and more more sedentary lifestyle. Plan: Physical therapy and occupational therapy eval (3) Wheezing Conclusion/Plan: Daily states that she does not have a history of asthma, emphysema, or COPD. She does not take any of those medications. Yet when you combine her history of smoking with current physical exam, she may have a new diagnosis of COPD/emphysema. Plan: Antibiotics as above Steroids duoneb (4) Full code status Conclusion/Plan: She really does not know what to say about CODE STATUS. She knows that she and her have discussed it and they have "forms" at home. She is leaning toward resuscitation if that means he could buy her some time. I did explain to her that sometimes resuscitation is a last ditch effort, and that if she recovers it may not be with a decent functional capacity that would be accep table for her. She says that she has not really talked about it with her other than filling out the form over a decade ago. She would like him to bring it in and then they could be discussed the matter. As such by default, she is a full code - Lab Results Lab results reviewed: Yes Fish Bones: 09/14/21 01:30 09/14/21 01:30 - Diagnostic Imaging Results Diagnostic Imaging Results: positive: Final report reviewed (CXR: Infiltrates in the right lower lobe and left midlung zone. Pleural effusions or pneumothorax.) - EKG Results EKG Interpreted Independently: No Core Measures - Anticipated LOS I expect patient to be DC'd or transferred within 96 hours.: Yes - DVT/VTE - Prophylaxis VTE/DVT Device ordered at admit?: Yes
[2021-09-14] MEDS ORDERED: IPRATROPIUM/ALBUTEROL 3 ML NEB INH PRN (03:51)
[2021-09-14] MEDS: SODIUM CHLORIDE 0.9% 1,000 ML IV SCH ×2 (04:46→14:49)
[2021-09-14 05:58] LABS: BASOPHILS # (AUTO) 0.1 10^3/uL (0.0-0.1); BASOPHILS % (AUTO) 0.3 %; EOSINOPHILS % (AUTO) 0.2 %; HCT - HEMATOCRIT 35.7 % (37.0-47.0); HGB - HEMOGLOBIN 11.6 g/dL (12.0-16.0); LYMPHOCYTES # (AUTO) 0.8 10^3/uL (1.5-3.5); LYMPHOCYTES % (AUTO) 4.3 %; MEAN CORPUSCULAR HEMOGLOBIN 30.9 pg (27.0-31.0); MEAN CORPUSCULAR HGB CONC 32.5 g/dL (32.0-36.0); MEAN CORPUSCULAR VOLUME 94.9 fL (81.0-99.0); MEAN PLATELET VOLUME 11.7 fL (7.9-10.8); MONOCYTES # (AUTO) 1.3 10^3/uL (0.0-1.0); MONOCYTES % (AUTO) 7.4 %; NEUTROPHILS # (AUTO) 15.3 10^3/uL (1.5-6.6); NEUTROPHILS % (AUTO) 87.2 %; PLT - PLATELET COUNT 150 10^3/uL (130-450); RED BLOOD COUNT 3.76 10^6/uL (4.20-5.40); RED CELL DISTRIBUTION WIDTH 12.9 % (12.0-15.0); WHITE BLOOD COUNT 17.5 x10^3/uL (4.8-10.8)
[2021-09-14 06:04] LABS: CREATININE 0.9 mg/dL (0.4-1.0); POTASSIUM 3.4 mmol/L (3.5-5.0)
[2021-09-14] MEDS ORDERED: BENZONATATE 100 MG CAPSULE PO PRN (08:36)
[2021-09-14] MEDS ORDERED: ENOXAPARIN 40 MG/0.4 ML SYRINGE SUBQ SCH (09:00)
[2021-09-14] MEDS: SACCHAROMYCES BOULARDII 250 MG CAPSULE PO SCH ×2 (10:34→18:24)
[2021-09-14] MEDS: SODIUM CHLORIDE FLUSH 0.9% 10 ML SYRINGE IVP SCH ×2 (10:35→18:25)
--- NOTE | 2021-09-14 17:09 | PHARMACY PROGRESS NOTE ---
- Best Possible Medication History Admit Date and Time: 09/14/21 0248 Processed by: Pharmacy Medication History completed: Yes Patient Interview: Pt unable to participate Secondary Source(s): Physician records As the person ultimately responsible for medication therapy, providers are able to order a medication from an existing home medication list in [facility] via the "Reconcile Routine" prior to Confirmation of that medication by customer support coordinator. Such practice is discouraged except when the physician, in their clinical judgment, deems that a medical need exists for a medication without regard to previous use.
[2021-09-14] MEDS: cefTRIAXone 1 GM in SODIUM CHLORIDE 0.9% MINIBAG 100 ML IV SCH (20:14)
[2021-09-14] MEDS: AZITHROMYCIN INJ 500 MG in SODIUM CHLORIDE 0.9% 250 ML IV SCH (21:11)
[2021-09-15] MEDS: SODIUM CHLORIDE FLUSH 0.9% 10 ML SYRINGE IVP SCH ×3 (00:04→17:24)
[2021-09-15] MEDS ORDERED: cefTRIAXone 1 GM in SODIUM CHLORIDE 0.9% MINIBAG 100 ML IV SCH (02:00)
[2021-09-15] MEDS ORDERED: AZITHROMYCIN INJ 500 MG in SODIUM CHLORIDE 0.9% 250 ML IV SCH (03:00)
[2021-09-15 06:16] LABS: BASOPHILS % (AUTO) 0.2 %; EOSINOPHILS # (AUTO) 0.1 10^3/uL (0.0-0.7); EOSINOPHILS % (AUTO) 0.3 %; HCT - HEMATOCRIT 38.1 % (37.0-47.0); HGB - HEMOGLOBIN 12.3 g/dL (12.0-16.0); LYMPHOCYTES # (AUTO) 1.8 10^3/uL (1.5-3.5); LYMPHOCYTES % (AUTO) 12.4 %; MEAN CORPUSCULAR HEMOGLOBIN 30.8 pg (27.0-31.0); MEAN CORPUSCULAR HGB CONC 32.3 g/dL (32.0-36.0); MEAN CORPUSCULAR VOLUME 95.5 fL (81.0-99.0); MEAN PLATELET VOLUME 12.2 fL (7.9-10.8); MONOCYTES # (AUTO) 0.8 10^3/uL (0.0-1.0); MONOCYTES % (AUTO) 5.4 %; NEUTROPHILS # (AUTO) 11.6 10^3/uL (1.5-6.6); NEUTROPHILS % (AUTO) 81.1 %; PLT - PLATELET COUNT 189 10^3/uL (130-450); RED BLOOD COUNT 3.99 10^6/uL (4.20-5.40); RED CELL DISTRIBUTION WIDTH 13.2 % (12.0-15.0); WHITE BLOOD COUNT 14.4 x10^3/uL (4.8-10.8)
[2021-09-15 06:27] LABS: CALCIUM 8.4 mg/dL (8.5-10.3); CREATININE 0.8 mg/dL (0.4-1.0); POTASSIUM 3.7 mmol/L (3.5-5.0)
--- NOTE | 2021-09-15 08:29 | PROVIDER PROGRESS NOTE ---
Subjective - Prog Note Date Prog Note Date: 09/15/21 - Subjective Subjective: She feels improved compared to yesterday. She still has dyspnea but she is able to ambulate further today. Still has a productive cough. Current Medications - Current Medications Current Medications: Active Medications Acetaminophen (Acetaminophen 325 Mg Tablet) 650 mg PO Q4HR PRN PRN Reason: Pain 1 to 4 Albuterol/Ipratropium (Ipratropium/Albuterol 3 Ml Neb) 3 ml INH Q4HR PRN PRN Reason: Wheezing Benzonatate (Benzonatate 100 Mg Capsule) 100 mg PO TID PRN PRN Reason: Cough Last Admin: 09/14/21 10:35 Dose: 100 mg Azithromycin 500 mg/ Sodium (Chloride) 250 mls @ 250 mls/hr IV QPM [facility] Stop: 09/15/21 21:59 Last Infusion: 09/14/21 22:30 Dose: Infused Ceftriaxone Sodium 1 gm/ (Sodium Chloride) 100 mls @ 200 mls/hr IV Q24H [facility] Stop: 09/17/21 20:29 Last Infusion: 09/14/21 21:15 Dose: Infused Morphine Sulfate (Morphine 2 Mg/Ml Carpuject) 2 mg IVP Q2HR PRN PRN Reason: Pain 8 to 10 Ondansetron HCl (Ondansetron Odt 4 Mg Tablet) 4 mg TL Q6HR PRN PRN Reason: Nausea / Vomiting Ondansetron HCl (Ondansetron 4 Mg/2 Ml Vial) 4 mg IVP Q6HR PRN PRN Reason: Nausea / Vomiting Oxycodone HCl (Oxycodone 5 Mg Tablet) 5 mg PO Q4HR PRN PRN Reason: Pain 5 to 7 Saccharomyces Boulardii (Saccharomyces Boulardii 250 Mg Capsule) 250 mg PO BIDWM [facility] Last Admin: 09/14/21 18:24 Dose: 250 mg Sodium Chloride (Sodium Chloride Flush 0.9% 10 Ml Syringe) 10 ml IVP PRN PRN PRN Reason: NEEDED PER PROVIDER ORDERS Sodium Chloride (Sodium Chloride Flush 0.9% 10 Ml Syringe) 10 ml IVP 0100,090 0,1700 [facility] Last Admin: 09/15/21 00:04 Dose: 10 ml Warfarin Sodium (Warfarin 1 Mg Tablet) 2 mg PO QDWARFARIN [facility] Warfarin Sodium [Coumadin] 2 mg PO DAILY 09/14/21 Objective - Vital Signs/Intake & Output Reviewed Vital Signs: Yes Vital Signs: Vital Signs x48h Temp Pulse Resp BP Pulse Ox 09/15/21 07:50 36.7 C 87 20 158/83 H 93 Intake & Output: Intake & Output 09/12/21 09/13/21 09/14/21 09/15/21 23:59 23:59 23:59 23:59 Intake Total 3540 1000 Output Total 1400 200 Balance 2140 800 - Objective General Appearance: positive: No acute distress Eyes Bilateral: positive: Normal inspection, Conjunctivae nml ENT: positive: ENT inspection nml, Other (Nasal cannula in place.) Neck: positive: Nml inspection Respiratory: positive: No respiratory distress, Wheezes, Rhonchi. negative: Rales Cardiovascular: positive: Irregularly irregular. negative: Tachycardia, Systolic murmur Abdomen: positive: Non-tender, No distention. negative: Tenderness Skin: positive: Warm, Dry Extremities: positive: No pedal edema Neurologic/Psychiatric: positive: Other (No obvious focal deficit.). negative: Disoriented to person, Disoriented to place - Lab Results Fish Bones: 09/15/21 05:50 09/15/21 05:50 Other Labs: Lab Results x24hrs 09/15/21 09/15/21 Range/Units 05:50 05:50 WBC 14.4 H (4.8-10.8) x10^3/uL RBC 3.99 L (4.20-5.40) 10^6/uL Hgb 12.3 (12.0-16.0) g/dL Hct 38.1 (37.0-47.0) % MCV 95.5 (81.0-99.0) fL MCH 30.8 (27.0-31.0) pg MCHC 32.3 (32.0-36.0) g/dL RDW 13.2 (12.0-15.0) % Plt Count 189 (130-450) 10^3/uL MPV 12.2 H (7.9-10.8) fL Neut # (Auto) 11.6 H (1.5-6.6) 10^3/uL Lymph # (Auto) 1.8 (1.5-3.5) 10^3/uL [place] # (Auto) 0.8 (0.0-1.0) 10^3/uL Eos # (Auto) 0.1 (0.0-0.7) 10^3/uL Baso # (Auto) 0.0 (0.0-0.1) 10^3/uL Absolute Nucleated RBC 0.00 x10^3/uL Nucleated RBC % 0.0 /100WBC Sodium 140 (135-145) mmol/L Potassium 3.7 (3.5-5.0) mmol/L Chloride 106 (101-111) mmol/L Carbon Dioxide 23 (21-32) mmol/L Anion Gap 11.0 (6-13) BUN 18 (6-20) mg/dL Creatinine 0.8 (0.4-1.0) mg/dL Estimated GFR (MDRD) 68 L (>89) Glucose 106 H (70-100) mg/dL Calcium 8.4 L (8.5-10.3) mg/dL Assessment/Plan - Problem List (1) Human metapneumovirus (hMPV) pneumonia Impression: She is improved overall. Still remains hypoxic and is requiring 1 L of oxygen. The likely cause of her pneumonia is the human metapneumovirus but we have her on antibiotics given her significant leukocytosis on admission. Her white blood cell count is improved today. We will continue ceftriaxone and azithromycin with today being day 2. I suspect she can be discharged home tomorrow when she is weaned off of oxygen. Continue contact precautions. (2) History of transcatheter aortic valve replacement (TAVR) Impression: She has a history of TAVR. This is stable. (3) Atrial fibrillation Impression: Heart rates are stable in the 90s to low 100s. She is not on any rate control medication at home but given her tachycardia, we will start metoprolol 25 mg twice daily. Continue Coumadin. (4) History of stroke with residual deficit Impression: Has a history of stroke with residual left-sided deficit which is quite minimal. She is on Coumadin which we will continue.
[2021-09-15 08:50] LABS: INR 2.7 (0.8-1.2); PT - PROTHROMBIN TIME 30.6 secs (9.9-12.6)
[2021-09-15] MEDS: SACCHAROMYCES BOULARDII 250 MG CAPSULE PO SCH ×2 (09:23→17:24)
[2021-09-15] MEDS: WARFARIN 1 MG TABLET PO SCH (13:50)
[2021-09-15] MEDS ORDERED: WARFARIN SODIUM 2 MG PO SCH (14:00)
[2021-09-15] MEDS: cefTRIAXone 1 GM in SODIUM CHLORIDE 0.9% MINIBAG 100 ML IV SCH (20:17)
[2021-09-15] MEDS: AZITHROMYCIN INJ 500 MG in SODIUM CHLORIDE 0.9% 250 ML IV SCH (21:30)
[2021-09-15] MEDS: guaiFENesin 600 MG TABLET PO SCH (21:31)
[2021-09-15] MEDS: METOPROLOL TARTRATE 25 MG TABLET PO SCH (22:31)
[2021-09-16] MEDS: SODIUM CHLORIDE FLUSH 0.9% 10 ML SYRINGE IVP SCH ×3 (00:17→17:07)
[2021-09-16 05:23] LABS: BASOPHILS % (AUTO) 0.3 %; EOSINOPHILS # (AUTO) 0.2 10^3/uL (0.0-0.7); EOSINOPHILS % (AUTO) 1.6 %; HCT - HEMATOCRIT 35.9 % (37.0-47.0); HGB - HEMOGLOBIN 11.7 g/dL (12.0-16.0); LYMPHOCYTES # (AUTO) 1.7 10^3/uL (1.5-3.5); LYMPHOCYTES % (AUTO) 17.4 %; MEAN CORPUSCULAR HEMOGLOBIN 30.8 pg (27.0-31.0); MEAN CORPUSCULAR HGB CONC 32.6 g/dL (32.0-36.0); MEAN CORPUSCULAR VOLUME 94.5 fL (81.0-99.0); MEAN PLATELET VOLUME 11.9 fL (7.9-10.8); MONOCYTES # (AUTO) 0.8 10^3/uL (0.0-1.0); NEUTROPHILS # (AUTO) 6.9 10^3/uL (1.5-6.6); NEUTROPHILS % (AUTO) 72.1 %; PLT - PLATELET COUNT 179 10^3/uL (130-450); RED CELL DISTRIBUTION WIDTH 13.1 % (12.0-15.0); WHITE BLOOD COUNT 9.6 x10^3/uL (4.8-10.8)
[2021-09-16 05:26] LABS: INR 2.2 (0.8-1.2); PT - PROTHROMBIN TIME 24.7 secs (9.9-12.6)
[2021-09-16 05:29] LABS: CALCIUM 8.1 mg/dL (8.5-10.3); CREATININE 0.7 mg/dL (0.4-1.0); POTASSIUM 3.8 mmol/L (3.5-5.0)
[2021-09-16] MEDS: guaiFENesin 600 MG TABLET PO SCH ×2 (10:44→20:33)
[2021-09-16] MEDS: METOPROLOL TARTRATE 25 MG TABLET PO SCH ×2 (10:44→20:33)
[2021-09-16] MEDS: SACCHAROMYCES BOULARDII 250 MG CAPSULE PO SCH ×2 (10:45→17:07)
[2021-09-16] MEDS: amLODIPine 5 MG TABLET PO SCH (10:47)
[2021-09-16] MEDS: WARFARIN 1 MG TABLET PO SCH (13:37)
--- NOTE | 2021-09-16 17:29 | PROVIDER PROGRESS NOTE ---
Subjective - Prog Note Date Prog Note Date: 09/16/21 - Subjective Subjective: She continues to feel better. Still has a cough. She has been walking a little more and she feels less dyspneic. Current Medications - Current Medications Current Medications: Vital Signs - 24 hr 09/16/21 09/16/21 09/16/21 00:00 08:00 13:00 Temperature 36.6 C 36.5 C Heart Rate Heart Rate [ 85 91 Brachial] Heart Rate [ 74 Monitoring electrodes] Respiratory 18 18 16 Rate Blood Pressure 172/62 H [Left Brachial artery] Blood Pressure 157/73 H 171/70 H [Right Brachial artery] O2 Saturation 96 92 98 09/16/21 09/16/21 16:01 16:09 Temperature 36.7 C Heart Rate 87 Heart Rate [ Brachial] Heart Rate [ 72 Monitoring electrodes] Respiratory 20 Rate Blood Pressure [Left Brachial artery] Blood Pressure 164/68 H [Right Brachial artery] O2 Saturation 94 Oxygen O2 Source Nasal cannula Oxygen Flow Rate 4 Objective - Vital Signs/Intake & Output Reviewed Vital Signs: Yes Vital Signs: Vital Signs x48h Temp Pulse Pulse Resp BP BP Pulse Ox 09/16/21 16:09 36.7 C 72 20 164/68 H 94 09/16/21 16:01 87 09/16/21 13:00 74 16 172/62 H 98 Intake & Output: Intake & Output 09/13/21 09/14/21 09/15/21 09/16/21 23:59 23:59 23:59 23:59 Intake Total 3540 1590 780 Output Total 1400 600 450 Balance 2140 990 330 - Objective General Appearance: positive: No acute distress, Alert Eyes Bilateral: positive: Normal inspection, Conjunctivae nml ENT: positive: ENT inspection nml, Other (Nasal cannula in place.) Neck: positive: Nml inspection Respiratory: positive: No respiratory distress, Rhonchi. negative: Wheezes Cardiovascular: positive: Irregularly irregular. negative: Tachycardia Skin: positive: Warm, Dry Extremities: positive: No pedal edema - Lab Results Fish Bones: 09/16/21 05:04 09/16/21 05:04 Other Labs: Lab Results x24hrs 09/16/21 09/16/21 09/16/21 Range/Units 05:04 05:04 05:04 WBC 9.6 (4.8-10.8) x10^3/uL RBC 3.80 L (4.20-5.40) 10^6/uL Hgb 11.7 L (12.0-16.0) g/dL Hct 35.9 L (37.0-47.0) % MCV 94.5 (81.0-99.0) fL MCH 30.8 (27.0-31.0) pg MCHC 32.6 (32.0-36.0) g/dL RDW 13.1 (12.0-15.0) % Plt Count 179 (130-450) 10^3/uL MPV 11.9 H (7.9-10.8) fL Neut # (Auto) 6.9 H (1.5-6.6) 10^3/uL Lymph # (Auto) 1.7 (1.5-3.5) 10^3/uL [place] # (Auto) 0.8 (0.0-1.0) 10^3/uL Eos # (Auto) 0.2 (0.0-0.7) 10^3/uL Baso # (Auto) 0.0 (0.0-0.1) 10^3/uL Absolute Nucleated RBC 0.00 x10^3/uL Nucleated RBC % 0.0 /100WBC PT 24.7 H (9.9-12.6) secs INR 2.2 H (0.8-1.2) Sodium 139 (135-145) mmol/L Potassium 3.8 (3.5-5.0) mmol/L Chloride 107 (101-111) mmol/L Carbon Dioxide 23 (21-32) mmol/L Anion Gap 9.0 (6-13) BUN 20 (6-20) mg/dL Creatinine 0.7 (0.4-1.0) mg/dL Estimated GFR (MDRD) 80 L (>89) Glucose 108 H (70-100) mg/dL Calcium 8.1 L (8.5-10.3) mg/dL ABX Reporting Has patient been on IV antibiotics over the past 48 hours?: Yes Assessment/Plan - Problem List (1) Human metapneumovirus (hMPV) pneumonia Impression: She continues to improve but she still remains hypoxic. I personally wean her down to room air but her sats were 90 to 91%. I had her walk with respiratory therapy and she desaturated to the low 80s. She is improved overall but will continue to require hospitalization until we can wean her off of the supplemental oxygen. We will continue antibiotics with ceftriaxone as she has completed 3 days of azithromycin. Continue supplemental oxygen for goal saturation greater than 92%. We may need to consider titrating the oxygen to 88% given she may have a history of underlying COPD given her smoking history. (2) Hypertension Impression: She is hypertensive with systolics in the 160s. She believes this is due to to her lack of exercise while here in the hospital. We have started her on metoprolol yesterday we will add amlodipine 5 mg today. (3) History of transcatheter aortic valve replacement (TAVR) Impression: She has a history of TAVR. This is stable. (4) Atrial fibrillation Impression: Heart rates are stable in the 90s to low 100s. She is not on any rate control medication at home but given her tachycardia, we will continue metoprolol 25 mg twice daily. Continue Coumadin. (5) History of stroke with residual deficit Impression: She has a history of stroke with residual left-sided deficit which is quite minimal. She is on Coumadin which we will continue.
[2021-09-16] MEDS: cefTRIAXone 1 GM in SODIUM CHLORIDE 0.9% MINIBAG 100 ML IV SCH (19:08)
[2021-09-17] MEDS: SODIUM CHLORIDE FLUSH 0.9% 10 ML SYRINGE IVP SCH ×2 (01:56→08:40)
[2021-09-17] MEDS: SACCHAROMYCES BOULARDII 250 MG CAPSULE PO SCH (08:16)
[2021-09-17] MEDS: METOPROLOL TARTRATE 25 MG TABLET PO SCH (08:39)
[2021-09-17] MEDS: amLODIPine 5 MG TABLET PO SCH (08:39)
[2021-09-17] MEDS: guaiFENesin 600 MG TABLET PO SCH (08:39)
[2021-09-17 09:48] LABS: BASOPHILS % (AUTO) 0.5 %; EOSINOPHILS # (AUTO) 0.1 10^3/uL (0.0-0.7); EOSINOPHILS % (AUTO) 1.4 %; HCT - HEMATOCRIT 37.1 % (37.0-47.0); LYMPHOCYTES # (AUTO) 1.1 10^3/uL (1.5-3.5); LYMPHOCYTES % (AUTO) 13.7 %; MEAN CORPUSCULAR HEMOGLOBIN 30.7 pg (27.0-31.0); MEAN CORPUSCULAR HGB CONC 32.3 g/dL (32.0-36.0); MEAN CORPUSCULAR VOLUME 94.9 fL (81.0-99.0); MEAN PLATELET VOLUME 11.4 fL (7.9-10.8); MONOCYTES # (AUTO) 0.4 10^3/uL (0.0-1.0); MONOCYTES % (AUTO) 5.7 %; NEUTROPHILS % (AUTO) 77.8 %; PLT - PLATELET COUNT 222 10^3/uL (130-450); RED BLOOD COUNT 3.91 10^6/uL (4.20-5.40); RED CELL DISTRIBUTION WIDTH 13.1 % (12.0-15.0); WHITE BLOOD COUNT 7.7 x10^3/uL (4.8-10.8)
[2021-09-17 09:59] LABS: CALCIUM 8.5 mg/dL (8.5-10.3); CREATININE 0.8 mg/dL (0.4-1.0); POTASSIUM 3.7 mmol/L (3.5-5.0)
--- NOTE | 2021-09-17 12:01 | Discharge Plan ---
Discharge Plan Problem Reviewed?: Yes Disposition: Home, Self Care Condition: Stable Prescriptions: cefUROXime axetiL [Ceftin] 500 mg PO BID 2 Days #8 tablet Metoprolol Tartrate [Lopressor] 25 mg PO BID #60 tablet amLODIPine [Norvasc] 5 mg PO DAILY #30 tablet Benzonatate [Tessalon] 100 mg PO TID PRN #21 cap PRN Reason: Cough Diet: Cardiac Activity Restrictions: Activity as Tolerated Instruction Topics: Pneumonia Dc Health Concerns: You were admitted to the hospital because of pneumonia due to human metapneumovirus. This usually causes a viral pneumonia but we could not rule out a bacterial infection as well so we treated you with antibiotics. Initially required oxygen but we have been able to wean you off of this. You are now stable for discharge home. Plan of Treatment: Please take the antibiotic called Ceftin for 2 more days beginning tomorrow to complete the 7 days of treatment for your pneumonia. Your blood pressure was also found to be elevated and we recommend that you take amlodipine and metoprolol. Continue with your Coumadin. Assessment: Patient expressed understanding of the treatment plan. Additional Instructions or Follow Up instructions: Please follow-up with your primary care physician within 1 week. No Smoking: If you smoke, Please STOP! Call for help. Follow-up with: ILDEFONSO WADE MD [Primary Care Provider] -
[2021-09-17 12:12] VITALS: BP 150/67
--- NOTE | 2021-09-17 12:36 | DISCHARGE SUMMARY ---
Discharge Summary Admit Date: 09/14/21 Discharge Date: 09/17/21 Discharging Provider: Ray Collazo Primary Care Provider: Ara Maldonado Code Status: Attempt Resuscitation Condition at Discharge: Stable Discharge Disposition: 01 Home, Self Care - DIAGNOSES Admission Diagnoses: Community-acquired pneumonia History of stroke with residual deficit Wheezing Full CODE STATUS Discharge Diagnoses with Status of Each Condition: Human metapneumovirus pneumonia - improved. Hypertension - stable. History of TAVR - stable. Atrial fibrillation - stable. History of stroke with residual deficit - stable. - HPI History of Present Illness: H&P per Dr. Gil: She began having a cough 2 weeks ago that was productive of yellow sputum. Her was will with a cough and he recovered after a few days but she did not. The cough is getting worse, and with it came more more shortness of breath. She has no appetite and forces herself to eat. No change in bowel habits. No chest pain other than her ribs hurting from the constant cough. She began having blood-tinged sputum today. The shortness of breath became severe enough that the family called an ambulance. In the ambulance her temperature was 101. Her O2 sats were in the 80s on room air. She required 6 L of oxygen to bring her O2 sats in the mid 90s. Past medical history is that of TAVR for aortic stenosis, congestive heart failure due to her aortic stenosis prior to valve replacement for which she was hospitalized at [facility]. In the emergency room temperature is 37.7. Heart rate was 118. Blood pressure 128/96. 94% on 3 L. She is not in any distress. She appears well-nourished. Mucous membranes are moist. She has slightly labored respirations and mild tachypnea. She has rales starting in the upper lobe and worsening in the lower lung downing. Right is worse than left. Chest x-ray shows bilateral pneumonia. BNP was 330. White cell count 13.6. No anemia. - HOSPITAL COURSE Hospital Course: She was admitted for hypoxia secondary to community-acquired pneumonia. Respiratory PCR panel came back positive for human metapneumovirus. This was felt to be the cause of her pneumonia but we did treat her with antibiotics given general elevated white blood cell count. She started on ceftriaxone and azithromycin. Over the next few days she had improvement in her white blood cell count and is now within normal limits. We are also able to wean her oxygen requirements down to room air and she is saturating 97% on room air on day of discharge. She was noted to be in atrial fibrillation and she was already on Coumadin but we did start metoprolol to help control her heart rate as it was in the 90s. We also started her on amlodipine for her hypertension. I have prescribed her Ceftin to take for 2 more days on discharge. [place] and today is Sunday. I recommended that we send it to another pharmacy so she can continue antibiotics tomorrow [place] - ALLERGIES Allergies/Adverse Reactions: Allergies Allergy/AdvReac Type Severity Reaction Status Date / Time Gadolinium-Containing AdvReac Intermediate Rash Verified 09/14/21 01:25 Contrast Medi VONNIE Inhibitors AdvReac Respiratory Verified 09/14/21 01:25 - MEDICATIONS Home Medications: Ambulatory Orders Medication Instructions Recorded Confirmed Warfarin Sodium [Coumadin] 2 mg PO DAILY 09/14/21 09/14/21 Benzonatate [Tessalon] 100 mg PO TID PRN #21 cap 09/17/21 Metoprolol Tartrate [Lopressor] 25 mg PO BID #60 tablet 09/17/21 amLODIPine [Norvasc] 5 mg PO DAILY #30 tablet 09/17/21 cefUROXime axetiL [Ceftin] 500 mg PO BID 2 Days #8 tablet 09/17/21 - PHYSICAL EXAM AT DISCHARGE General Appearance: positive: No acute distress, Alert Eyes Bilateral: positive: Normal inspection, Conjunctivae nml ENT: positive: ENT inspection nml Neck: positive: Nml inspection Respiratory: positive: No respiratory distress, Rhonchi. negative: Wheezes, Rales Cardiovascular: positive: Irregularly irregular. negative: Tachycardia Abdomen: positive: Non-tender, No distention. negative: Tenderness Skin: positive: Warm, Dry Extremities: positive: No pedal edema Neurologic/Psychiatric: negative: Disoriented to person, Disoriented to place, Disoriented to time Physical Exam Other/Comments: Vital Signs - 24 hr 09/17/21 09/17/21 09/17/21 01:00 05:00 08:22 Temperature 36.5 C 37.3 C 36.4 C L Heart Rate [ 95 Brachial] Heart Rate [ 81 80 Monitoring electrodes] Respiratory 16 18 20 Rate Blood Pressure 162/58 H [Left Brachial artery] Blood Pressure 150/58 H 152/71 H [Right Brachial artery] O2 Saturation 92 91 L 92 09/17/21 09/17/21 10:00 12:11 Temperature 37.1 C Heart Rate [ 72 Brachial] Heart Rate [ Monitoring electrodes] Respiratory 16 Rate Blood Pressure [Left Brachial artery] Blood Pressure 150/67 H [Right Brachial artery] O2 Saturation 92 94 Oxygen O2 Source Room air Oxygen Flow Rate 4 - LABS Result Diagrams: 09/17/21 09:38 09/17/21 09:38 - DIAGNOSTIC IMAGING Diagnostic Imaging Results: Final report reviewed - FOLLOW UP Follow Up: She was asked to follow-up with her primary care physician within 1 week to monitor her blood pressure. - TIME SPENT Time Spent in Discharge (Minutes): 32
[2021-09-17] MEDS: WARFARIN 1 MG TABLET PO SCH (13:29)
== END 2021-09-17 14:46 | disposition home or self-care (01) | DRG 194 ==
LOC: EDUNIT# → ED 01:16 → MS3 02:48
PROVIDERS: ADMIT Specialist; ATTEND Internal Medicine
DX: J18.9 Pneumonia, unspecified organism (principal); J12.3 Human metapneumovirus pneumonia; I69.354 Hemiplegia and hemiparesis following cerebral infarction affecting left non-dominant side; I11.0 Hypertensive heart disease with heart failure; I25.10 Atherosclerotic heart disease of native coronary artery without angina pectoris; I48.91 Unspecified atrial fibrillation; J44.0 Chronic obstructive pulmonary disease with (acute) lower respiratory infection; Z20.822 Contact with and (suspected) exposure to COVID-19; Z66 Do not resuscitate; I50.9 Heart failure, unspecified; Z86.73 Personal history of transient ischemic attack (TIA), and cerebral infarction without residual deficits; I69.391 Dysphagia following cerebral infarction; R09.02 Hypoxemia; R13.10 Dysphagia, unspecified; R32 Unspecified urinary incontinence; Z79.01 Long term (current) use of anticoagulants; Z79.899 Other long term (current) drug therapy; Z87.891 Personal history of nicotine dependence; Z88.8 Allergy status to other drugs, medicaments and biological substances; Z95.2 Presence of prosthetic heart valve
CPT/HCPCS: 36415; 71045; 80048; 80053; 83605; 83880; 85025; 85610; 87040; 87070; 87205; 87631; 93005; 94761; 96365; 99283; 99285; A9270; 0202U

== ENCOUNTER 2023-03-22 10:59 | Outpatient (CLI) | payer MEDICARE, OTHER ==
[2023-03-22 11:29] LABS: INR 2.4 (0.8-1.2); PT - PROTHROMBIN TIME 25.5 secs (9.9-12.6)
== END 2023-03-22 11:00 | disposition home or self-care (01) ==
LOC: LAB.R 10:59
PROVIDERS: ATTEND Pharmacist
DX: G45.9 Transient cerebral ischemic attack, unspecified (principal)
CPT/HCPCS: 85610

== ENCOUNTER 2023-08-02 14:58 | Emergency (ER) | payer MEDICARE, OTHER ==
[2023-08-02 15:08] VITALS: O2SAT 98
--- NOTE | 2023-08-02 15:36 | Ultrasound Report ---
PROCEDURE: Duplex Ext Veins Right INDICATIONS: rle swelling` TECHNIQUE: Real-time imaging, as well as color and pulse Doppler interrogation, were performed of the lower extr emity deep veins from the inguinal ligament to the popliteal fossa. Attempted visualization of the ca lf veins was performed. COMPARISON: None. FINDINGS: The deep veins are normally compressible, and free of intraluminal thrombus. Color and pu lse Doppler demonstrate normal phasic intraluminal flow. There is normal augmentation response to di stal compression maneuver. IMPRESSION: No deep venous thrombosis of the visualized lower extremity. Reviewed by: Thelma Mo MD on 08/02/2023 3:35 PM PST Approved by: Thelma Mo MD on 08/02/2023 3:35 PM PST Station ID: [id number]
[2023-08-02 15:47] LABS: BASOPHILS % (AUTO) 0.3 %; EOSINOPHILS # (AUTO) 0.1 10^3/uL (0.0-0.7); EOSINOPHILS % (AUTO) 1.3 %; HCT - HEMATOCRIT 43.6 % (37.0-47.0); HGB - HEMOGLOBIN 13.4 g/dL (12.0-16.0); LYMPHOCYTES % (AUTO) 31.8 %; MEAN CORPUSCULAR HEMOGLOBIN 30.2 pg (27.0-31.0); MEAN CORPUSCULAR HGB CONC 30.7 g/dL (32.0-36.0); MEAN CORPUSCULAR VOLUME 98.4 fL (81.0-99.0); MEAN PLATELET VOLUME 11.6 fL (7.9-10.8); MONOCYTES # (AUTO) 0.6 10^3/uL (0.0-1.0); MONOCYTES % (AUTO) 9.3 %; NEUTROPHILS # (AUTO) 3.6 10^3/uL (1.5-6.6); PLT - PLATELET COUNT 165 10^3/uL (130-450); RED BLOOD COUNT 4.43 10^6/uL (4.20-5.40); RED CELL DISTRIBUTION WIDTH 13.3 % (12.0-15.0); WHITE BLOOD COUNT 6.3 x10^3/uL (4.8-10.8)
[2023-08-02 15:51] LABS: INR 2.8 (0.8-1.2); PT - PROTHROMBIN TIME 28.4 secs (9.9-12.6)
[2023-08-02 15:54] LABS: CALCIUM 9.1 mg/dL (8.5-10.3); CREATININE 0.9 mg/dL (0.6-1.3); POTASSIUM 4.2 mmol/L (3.5-4.5)
--- NOTE | 2023-08-02 16:30 | ED Physician Documentation ---
History of Present Illness - Stated complaint Stated Complaint: RT LEG SWELLING, SENT BY WALK IN - Chief complaint Chief Complaint: Ext Problem - History obtained from History obtained from: Patient, Family (Patient presents with her son lives at home independently. They went into walk-in clinic today for ongoing right lower extremity swelling. This originally started on July 12 there is been no falls or trauma that they are aware of actually reports that the swelling has significantly improved an) PD PAST MEDICAL HISTORY - Past Medical History Past Medical History: Yes Cardiovascular: Congestive heart failure, Hypertension, Coronary artery disease, Atrial fibrillation, Valve disorder Respiratory: COPD Neuro: CVA, TIA Endocrine/Autoimmune: None GI: None ICT SUPPORT ENGINEER: Other : Incontinence HEENT: None Psych: None Musculoskeletal: None Derm: None - Past Surgical History Past Surgical History: Yes Cardiovascular: Valve replacement - Present Medications Home Medications: Ambulatory Orders Medication Instructions Recorded Confirmed Warfarin Sodium [Coumadin] 2 mg PO DAILY 09/14/21 09/14/21 Benzonatate [Tessalon] 100 mg PO TID PRN #21 cap 09/17/21 Metoprolol Tartrate [Lopressor] 25 mg PO BID #60 tablet 09/17/21 amLODIPine [Norvasc] 5 mg PO DAILY #30 tablet 09/17/21 cefuroxime axetiL [Ceftin] 500 mg PO BID 2 Days #8 tablet 09/17/21 cefuroxime axetiL [Ceftin] 500 mg PO Q12H #8 tablet 09/20/21 - Allergies Allergies/Adverse Reactions: Allergies Allergy/AdvReac Type Severity Reaction Status Date / Time Gadolinium-Containing AdvReac Intermediate Rash Verified 08/02/23 15:04 Contrast Medi VONNIE Inhibitors AdvReac Respiratory Verified 08/02/23 15:04 - Social History Does the pt smoke?: No Smoking Status: Never smoker Does the pt drink ETOH?: No Does the pt have substance abuse?: No - Immunizations Immunizations are current?: Yes - POLST Patient has POLST: No POLST Status: Full Code PD ED PE NORMAL - Vitals Vital signs reviewed: Yes - General General: Alert and oriented X 3 - Extremities Extremities: No calf tenderness / cord. No: No edema (Right ankle swelling full range of motion no pain with palpation mild 1+ pitting edema to the right ankle no pitting edema to the lugo or calf.) - Neuro Neuro: Alert and oriented X 3 - Psych Psych: Normal mood Results - Vitals Vitals: Vital Signs - 24 hr 08/02/23 15:05 Temperature 36.5 C Heart Rate 71 Respiratory 18 Rate Blood Pressure 150/90 H O2 Saturation 98 Oxygen O2 Source Room air - Labs Labs: Laboratory Tests 08/02/23 08/02/23 08/02/23 15:35 15:35 15:35 WBC 6.3 RBC 4.43 Hgb 13.4 Hct 43.6 MCV 98.4 MCH 30.2 MCHC 30.7 L RDW 13.3 Plt Count 165 MPV 11.6 H Neut # (Auto) 3.6 Lymph # (Auto) 2.0 [place] # (Auto) 0.6 Eos # (Auto) 0.1 Baso # (Auto) 0.0 Absolute Nucleated RBC 0.00 Nucleated RBC % 0.0 PT 28.4 H INR 2.8 H Sodium 139 Potassium 4.2 Chloride 106 Carbon Dioxide 26 Anion Gap 7.0 BUN 28 H Creatinine 0.9 Estimated GFR (MDRD) 59 L Glucose 88 Calcium 9.1 - Rads (name of study) venous duplex Relevant Findings:: Final report received, Other (DO not visualize blood clot to LLE) PD Medical Decision Making - ED course Complexity details: reviewed old records ED course: I evaluated the patient her right ankle does appear to be slightly swollen 1+ pitting edema to right lower extremity in comparison to left lower extremity. She does not have any right calf tenderness. No shortness of breath or chest pain. Venous duplex is complete which rules out possible DVT. She is also chronically anticoagulated on Coumadin since she had a stroke 20 years ago. She has no erythema to the right lower extremity concerning for possible cellulitis. Patient was told to follow-up with her primary care provider for further evaluation of this right lower extremity swelling and given strict return precautions all questions answered safe for discharge with her son. Departure - Departure Disposition: 01 Home, Self Care Clinical Impression: Pain of lower extremity Qualifiers: Laterality: right Qualified Code(s): M79.604 - Pain in right leg Condition: Good Instructions: ED Leg Swelling Unilateral Comments: Thank you for trusting us with your care you are safe to go home at this time. We have completed a venous duplex on your right lower extremity we did not see any blood clot. I also do not see any redness or significant swelling myself to the right lower extremity concerning for possible infection. Continue to elevate your leg consider wearing compression stockings to help with your inflammation and swelling follow-up with your primary care provider for ongoing further investigation of this right leg swelling. Please come back to the emergency department for having any shortness of breath chest pain or any other concerning symptoms. Wishing you a speedy recovery! Forms: PCP List
[2023-08-02 16:48] VITALS: BP 136/80
== END 2023-08-02 16:35 | disposition home or self-care (01) ==
LOC: ED 14:58
DX: M79.604 Pain in right leg (principal)
CPT/HCPCS: 36415; 80048; 85025; 85610; 99283; 99284

== ENCOUNTER 2024-01-23 10:36 | Outpatient (CLI) | payer MEDICARE, OTHER ==
[2024-01-23 18:49] LABS: BASOPHILS % (AUTO) 0.6 %; EOSINOPHILS % (AUTO) 0.6 %; HCT - HEMATOCRIT 42.9 % (37.0-47.0); HGB - HEMOGLOBIN 13.2 g/dL (12.0-16.0); LYMPHOCYTES # (AUTO) 1.6 10^3/uL (1.5-3.5); LYMPHOCYTES % (AUTO) 30.4 %; MEAN CORPUSCULAR HEMOGLOBIN 30.4 pg (27.0-31.0); MEAN CORPUSCULAR HGB CONC 30.8 g/dL (32.0-36.0); MEAN CORPUSCULAR VOLUME 98.8 fL (81.0-99.0); MEAN PLATELET VOLUME 12.8 fL (7.9-10.8); MONOCYTES # (AUTO) 0.5 10^3/uL (0.0-1.0); MONOCYTES % (AUTO) 9.8 %; NEUTROPHILS % (AUTO) 58.4 %; PLT - PLATELET COUNT 156 10^3/uL (130-450); RED BLOOD COUNT 4.34 10^6/uL (4.20-5.40); RED CELL DISTRIBUTION WIDTH 14.1 % (12.0-15.0); WHITE BLOOD COUNT 5.2 x10^3/uL (4.8-10.8)
[2024-01-23 19:16] LABS: INR 3.1 (0.8-1.2); PT - PROTHROMBIN TIME 31.3 secs (9.9-12.6)
[2024-01-23 19:17] LABS: THYROID STIMULATING HORMONE 1.89 uIU/mL (0.34-5.60)
[2024-01-23 19:19] LABS: % IRON SATURATION 26 % (20-50); ALBUMIN 4.1 g/dL (3.2-5.5); ALBUMIN/GLOBULIN RATIO 1.6 (1.0-2.2); ALKALINE PHOSPHATASE 75 IU/L (42-121); ALT ALANINE AMINOTRANSFERASE 15 IU/L (10-60); AST ASPARTATE AMINOTRANSFERASE 21 IU/L (10-42); BILIRUBIN,TOTAL 0.5 mg/dL (0.2-1.0); BUN - BLOOD UREA NITROGEN 24 mg/dL (6-20); CALCIUM 9.5 mg/dL (8.5-10.3); CARBON DIOXIDE - CO2 26 mmol/L (21-32); CHLORIDE 108 mmol/L (101-111); CHOL/HDL RATIO 2.2 (<4.4); CHOLESTEROL 166 mg/dL; GFR - MDRD 52 (>89); GLUCOSE 97 mg/dL (74-104); HDL CHOLESTEROL 77 mg/dL; IRON 113 ug/dL (50-212); LDL CHOLESTEROL,CALCULATED 77 mg/dL; MAGNESIUM 1.7 mg/dL (1.7-2.3); POTASSIUM 4.4 mmol/L (3.5-4.5); SODIUM 141 mmol/L (135-145); TOTAL IRON BINDING CAPACITY 438 ug/dL (250-450); TOTAL PROTEIN 6.7 g/dL (6.4-8.9); TRANSFERRIN 313 mg/dL (203-362); TRIGLYCERIDES 59 mg/dL (48-352); VLDL CHOLESTEROL 12 mg/dL
== END 2024-01-23 10:37 | disposition home or self-care (01) ==
LOC: LAB.N 10:36
PROVIDERS: ATTEND Internal Medicine
DX: I10 Essential (primary) hypertension (principal); D64.9 Anemia, unspecified; Z79.01 Long term (current) use of anticoagulants; Z79.899 Other long term (current) drug therapy; K64.9 Unspecified hemorrhoids
CPT/HCPCS: 36415; 80053; 80061; 82306; 82607; 82746; 83540; 83721; 83735; 84443; 84466; 85025; 85610

== ENCOUNTER 2024-02-07 10:05 | Outpatient (CLI) | payer MEDICARE, OTHER ==
[2024-02-07 12:40] LABS: INR 2.1 (0.8-1.2); PT - PROTHROMBIN TIME 21.6 secs (9.9-12.6)
== END 2024-02-07 10:06 | disposition home or self-care (01) ==
LOC: LAB.N 10:05
PROVIDERS: ATTEND Internal Medicine
DX: Z51.81 Encounter for therapeutic drug level monitoring (principal); Z79.01 Long term (current) use of anticoagulants
CPT/HCPCS: 36415; 85610

== ENCOUNTER 2024-02-08 11:32 | Outpatient (CLI) | payer MEDICARE, OTHER ==
[2024-02-08] MEDS ORDERED: iohexoL-300 100 ML VIAL ONE (11:35)
[2024-02-08] MEDS ORDERED: DIATRIZOATE MEGLU/DIATRIZO SOD 30 ML BOTTLE PO ONE (11:36)
--- NOTE | 2024-02-08 14:20 | CT Report ---
PROCEDURE: Abdomen/Pelvis W INDICATIONS: ABD PAIN CONTRAST: 100ml omni 300 TECHNIQUE: After the administration of intravenous contrast, a CT scan of the abdomen and pelvis was performed. Images were recorded and evaluated at appropriate window settings. Reformats: coronal and sagittal. F or radiation dose reduction, the following was used: automated exposure control, adjustment of mA and /or kV according to patient size. COMPARISON: None. FINDINGS: Image quality: Diagnostic Lower chest: Scattered scarring and atelectasis. Small Bochdalek's hernia on the right. There is a tr marissa left pleural effusion. Nonspecific mild distal esophageal wall thickening and hiatal hernia. Aortic valve replacement. Cardi omegaly and coronary calcifications. Possibly ectatic ascending aorta partially seen Liver: Subcentimeter lesions are too small characterize, usually cysts. Possible scarring at the medi al regions of segment 5 and 8, and segment 4. A left lobe liver cyst is also present. Gallbladder and biliary system: Unremarkable, nondilated Pancreas: No ductal dilation Spleen: Nonenlarged Adrenals: Bilateral thickening Kidneys: No solid mass. No hydronephrosis. Renal cysts are present. Subcentimeter lesions are too sma ll characterize, usually also cysts. No solid or complicated lesion identified requiring follow-up Vessels and lymph nodes: Atherosclerotic calcifications. No abdominal aortic aneurysm. No pathologic lymph nodes by size criteria. Bowel and peritoneum: Mild proximal and distal gastric wall thickening, nonspecific and not well eval uated due to underdistention. No small bowel obstruction. There is overall moderate fecal loading. Qu estionable mass versus intermediate density subdural in the rectum. (2/129) No pathologic ascites. Body wall: Unremarkable Pelvis: Bladder is underdistended and not well evaluated. The endometrium measures 5 to 6 mm, which i s borderline thickened. Bones: No acute or suspicious osseous findings. There are degenerative changes. IMPRESSION: Possible rectal lesion (2/128, 129). Moderate fecal loading in the proximal colon. There may also be mild wall thickening of the proximal and distal stomach, as well as the distal esop hagus with hiatal hernia. Consider endoscopic correlation for the above findings. Trace left pleural effusion. Cardiomegaly, coronary calcifications, and possibly ectatic ascending ao rta. Borderline thickening of the uterine endometrium, which could be evaluated with initial ultrasound. Other findings as above. Reviewed by: Yousuf Sanchez MD on 02/08/2024 2:19 PM PDT Approved by: Yousuf Sanchez MD on 02/08/2024 2:19 PM PDT Station ID: [id number]
[2024-02-08] MEDS: DIATRIZOATE MEGLU/DIATRIZO SOD 30 ML BOTTLE PO ONE (18:04)
[2024-02-08] MEDS: iohexoL-300 100 ML VIAL IVP ONE (18:04)
== END 2024-02-08 11:33 | disposition home or self-care (01) ==
LOC: DI 11:32
PROVIDERS: ATTEND Internal Medicine
DX: K44.9 Diaphragmatic hernia without obstruction or gangrene (principal); J90 Pleural effusion, not elsewhere classified; I51.7 Cardiomegaly; I25.10 Atherosclerotic heart disease of native coronary artery without angina pectoris; R93.89 Abnormal findings on diagnostic imaging of other specified body structures
CPT/HCPCS: 74177; Q9963; Q9967

== ENCOUNTER 2024-02-11 08:00 | Outpatient (CLI) | payer MEDICARE, OTHER | END 2024-02-11 23:59 | disposition home or self-care (01) | LOC: LAB.N 08:00 | PROVIDERS: ATTEND Internal Medicine | DX: R10.9 Unspecified abdominal pain (principal); K58.8 Other irritable bowel syndrome | CPT/HCPCS: 81599; 87045; 87046; 87177; 87209; 87427 ==

== ENCOUNTER 2024-02-14 11:40 | Day surgery (SDC) | payer MEDICARE, OTHER ==
[2024-02-14] MEDS: LACTATED RINGERS 1,000 ML IV ONE ×2 (12:15→14:18)
[2024-02-14] MEDS ORDERED: LIDOCAINE 1%-EPI 1:100000 20 ML MDV ONE (12:48)
[2024-02-14] MEDS ORDERED: BUPIVACAINE 0.25% PF 10 ML VIAL ONE (12:49)
[2024-02-14] MEDS ORDERED: LIDOCAINE OINTMENT 5% 35.44 GM TUBE ONE (12:49)
[2024-02-14] MEDS ORDERED: BUPIVACAINE 0.25% PF 30 ML VIAL ONE (12:49)
--- NOTE | 2024-02-14 13:17 | ANESTHESIA ---
Pre-Anesthesia VS, & Labs - Diagnosis rectal polyp - Procedure excision rectal polyp under anesthesia Vital Signs: Temp Pulse Resp BP Pulse Ox O2 Flow Rate 37.1 C 66 22 156/58 H 98 02/14/24 12:11 02/14/24 12:11 02/14/24 12:11 02/14/24 12:11 02/14/24 12:11 Height: 5 ft 2 in Weight (kg): 52 kg Body Mass Index: 20.9 BMI Classification: Normal - NPO >8 hours - Is Patient ?: No - Lab Results Lab results reviewed: Yes Home Medications and Allergies Home Medications: Ambulatory Orders Losartan [Cozaar] 25 mg PO DAILY 02/14/24 Warfarin Sodium [Coumadin] 3 mg PO DAILY 09/14/21 Losartan [Cozaar] 25 mg PO DAILY 02/14/24 Allergies/Adverse Reactions: Allergies Allergy/AdvReac Type Severity Reaction Status Date / Time Gadolinium-Containing AdvReac Intermediate Rash Verified 02/13/24 12:20 Contrast Medi VONNIE Inhibitors AdvReac Respiratory Verified 02/13/24 12:20 Anes History & Medical History - Anesthetic History Anesthesia Complications: reports: No previous complications Family history of Anesthesia Complications: Denies Family history of Malignant Hyperthermia: Denies - Medical History Cardiovascular: reports: Congestive heart failure, Hypertension, Coronary artery disease, HI, Atrial fibrillation, Arrhythmia, Valve disorder Pulmonary: reports: COPD, Pneumonia, Sleep apnea Gastrointestinal: reports: None Urinary: reports: Incontinence, Frequency Neuro: reports: CVA, TIA Musculoskeletal: reports: Fatigue Endocrine/Autoimmune: reports: None Blood Disorders: reports: None Skin: reports: Other Smoking Status: Never smoker - Surgical History General: reports: Colonoscopy Eyes Ears Nose Throat (EENT): reports: Tonsil/Adenoidectomy Cardiothoracic: reports: Valve replacement Exam General: Alert, Oriented x3, Cooperative Dental: Dentures full Upper, Dentures full Lower Mouth Openin Fingerbreadth Neck Mobility: Normal Mallampati classification: II Thyromental Distance: 4-6 cm Respiratory: Lungs clear, Normal breath sounds, No respiratory distress Cardiovascular: Regular rate Neurological: Normal speech Mental/Cognitive Status: Alert/Oriented X3, Normal for patient Cognitive Status: Within normal limits Plan Anesthesia Type: Total IV Consent for Procedure(s) Verified and Reviewed: Yes Code Status: Attempt Resuscitation ASA classification: 3-Severe systemic disease Is this case an emergency?: No
[2024-02-14] MEDS ORDERED: PROPOFOL 500 MG/50 ML 500 MG/50 ML VIAL ONE (13:20)
[2024-02-14] MEDS ORDERED: LIDOCAINE-PF 2% 10 ML AMP SUBQ ONE (13:24)
[2024-02-14] MEDS: LIDOCAINE OINTMENT 5% 35.44 GM TUBE TOP ONE (14:02)
[2024-02-14] MEDS: BUPIVACAINE 0.25% PF 30 ML VIAL SUBQ ONE (14:04)
[2024-02-14] MEDS: HYDROGEN PEROXIDE 3% 473 ML BOTTLE TOP ONE (14:04)
[2024-02-14] MEDS: LIDOCAINE MPF 2%-EPI 1:200000 20 ML VIAL SUBQ ONE (14:05)
--- NOTE | 2024-02-14 14:24 | OPERATIVE REPORT ---
Operative Report - General Procedure Date: 02/14/24 Planned Procedure: exam under anesthesia and transanal excision rectal polyp Pre-Op Diagnosis: prolapsing and bleeding rectal polyp Procedure Performed: eua and transanal excision 3.5 x 4 cm rectal polyp Post Op Diagnosis: same - Procedure Note Primary Surgeon: tatyana mishra Anesthesia Technique: MAC Pathology: sent Estimated Blood Loss (mL): 2 Drain/Tube Type: Other (none) Indications: prolapsing and bleeding rectal polyp Findings: as above Complications: none - Other Other Information/Narrative: The patient was prepped identified brought to the operating room on stretcher. She was carefully and comfortably repositioned left lateral decubitus. The procedure was performed on the stretcher. Monitored anesthesia care was given. Exam under anesthesia was performed. Anoscopy and digital rectal exam were performed. She has no significant hemorrhoidal disease. She has a 3-1/2 to 4 cm prolapsing polyp. The polyp and surrounding tissue is soft. The patient is on Coumadin. She is Coumadin dependent to avoid TIAs. The polyp was slowly removed using cautery and closing the mucosa with a running and locking 2 0 Vicryl suture. The polyp was removed with a grossly negative margin. It was sent to permanent for pathology. Hemostasis was assured she tolerated the procedure very well was brought to recovery in good condition.
--- NOTE | 2024-02-14 14:31 | ANESTHESIA POST OP EVALUATION ---
Anesthesia Post Eval - Post Anesthesia Eval Vitals: Last Vital Signs Temp 36.7 C 02/14/24 14:18 Pulse 60 02/14/24 14:18 Resp 16 02/14/24 14:18 BP 118/49 L 02/14/24 14:18 Pulse Ox 99 02/14/24 14:18 O2 Flow Rate CV Function Including HR & BP: Stable Pain Control: Satisfactory Nausea & Vomiting: Negative Mental Status: Baseline Respiratory Status: Airway Patent Hydration Status: Satisfactory Anesthesia Complications: None
[2024-02-14 14:58] VITALS: BP 160/68; O2SAT 100
== END 2024-02-14 11:41 | disposition home or self-care (01) ==
LOC: SDS 11:40
PROVIDERS: ATTEND Surgery
PROC: 0DBP8ZZ Excision of Rectum, Via Natural or Artificial Opening Endoscopic (ICD-10-PCS; principal; 2024-02-14 13:30)
DX: D12.8 Benign neoplasm of rectum (principal); Z79.01 Long term (current) use of anticoagulants; Z86.73 Personal history of transient ischemic attack (TIA), and cerebral infarction without residual deficits; I25.2 Old myocardial infarction; J44.9 Chronic obstructive pulmonary disease, unspecified; I11.0 Hypertensive heart disease with heart failure; I50.9 Heart failure, unspecified; I48.91 Unspecified atrial fibrillation
CPT/HCPCS: 46610; A9270; J7120

== ENCOUNTER 2024-03-05 11:05 | Outpatient (CLI) | payer MEDICARE, OTHER ==
[2024-03-05 12:17] LABS: INR 1.8 (0.8-1.2); PT - PROTHROMBIN TIME 18.9 secs (9.9-12.6)
== END 2024-03-05 11:06 | disposition home or self-care (01) ==
LOC: LAB.N 11:05
PROVIDERS: ATTEND Internal Medicine
DX: Z51.81 Encounter for therapeutic drug level monitoring (principal); Z79.01 Long term (current) use of anticoagulants
CPT/HCPCS: 36415; 85610

== ENCOUNTER 2024-03-08 12:16 | Outpatient (CLI) | payer MEDICARE, OTHER ==
--- NOTE | 2024-03-08 23:24 | Ultrasound Report ---
PROCEDURE: Pelvic Complete INDICATIONS: ENDOMETRIAL HYPERPLASIA TECHNIQUE: Real-time transabdominal scanning was performed of the pelvic organs, with image documentation. COMPARISON: None. FINDINGS: Uterus: Uterus is anteverted and normal in size at 8.3 x 2.3 x 3.6 cm. The myometrium is heterogene ous. The endometrium measures 5 mm in combined thickness. Ovaries: Bilateral ovaries were not visualized on this examination. No adnexal masses are seen. Other: No free pelvic fluid. IMPRESSION: Heterogeneous appearance of the uterus without focal fibroids. Endometrium measures at the upper limi ts of normal. If there is clinical history of abnormal postmenopausal bleeding, further evaluation wi th biopsy can be considered. Bilateral ovaries were not visualized on this exam. Reviewed by: Ron Judge MD on 03/08/2024 11:23 PM PDT Approved by: Ron Judge MD on 03/08/2024 11:23 PM PDT Station ID: [id number]
== END 2024-03-08 12:17 | disposition home or self-care (01) ==
LOC: DI 12:16
PROVIDERS: ATTEND Internal Medicine
DX: N85.00 Endometrial hyperplasia, unspecified (principal)

== ENCOUNTER 2024-03-13 14:43 | Outpatient (CLI) | payer MEDICARE, OTHER ==
[2024-03-13 17:58] LABS: INR 1.7 (0.8-1.2); PT - PROTHROMBIN TIME 17.8 secs (9.9-12.6)
== END 2024-03-13 14:44 | disposition home or self-care (01) ==
LOC: LAB.N 14:43
PROVIDERS: ATTEND Internal Medicine
DX: Z79.01 Long term (current) use of anticoagulants (principal)
CPT/HCPCS: 36415; 85610

== ENCOUNTER 2024-03-27 09:08 | Outpatient (CLI) | payer MEDICARE, OTHER ==
[2024-03-27 12:20] LABS: INR 1.8 (0.8-1.2); PT - PROTHROMBIN TIME 19.3 secs (9.9-12.6)
== END 2024-03-27 09:09 | disposition home or self-care (01) ==
LOC: LAB 09:08
PROVIDERS: ATTEND Internal Medicine
DX: Z79.01 Long term (current) use of anticoagulants (principal)
CPT/HCPCS: 36415; 85610

== ENCOUNTER 2024-04-17 09:56 | Outpatient (CLI) | payer MEDICARE, OTHER ==
[2024-04-17 12:15] LABS: INR 1.7 (0.8-1.2); PT - PROTHROMBIN TIME 17.8 secs (9.9-12.6)
== END 2024-04-17 09:57 | disposition home or self-care (01) ==
LOC: LAB.N 09:56
PROVIDERS: ATTEND Internal Medicine
DX: Z51.81 Encounter for therapeutic drug level monitoring (principal); Z79.01 Long term (current) use of anticoagulants
CPT/HCPCS: 36415; 85610